=== PATIENT | female | born 1975 | race Caucasian/White ===

== ENCOUNTER 2022-12-26 20:57 | Emergency (ER) | payer MEDICAID ==
[~2022-12-26] VITALS: Ht 152.4 cm; Wt 65.9 kg
[2022-12-26 21:24] LABS: COVID AG,FIA SOURCE NASAL SWAB
[2022-12-26 21:43] LABS: INFLUENZA TYPE A NEGATIVE FOR TYPE A (NEGATIVE); INFLUENZA TYPE B POSITIVE FOR TYPE B (NEGATIVE)
[2022-12-26] MEDS ORDERED: OSEL75 PO (22:11)
[2022-12-26] MEDS ORDERED: IPRATROPIUM BROMIDE 0.5 MG/2.5 ML NEB SOLUTION NEB ONE (22:15)
[2022-12-26] MEDS ORDERED: ALBUTEROL SULFATE 2.5 MG/0.5 ML NEB SOLUTION NEB ONE (22:15)
[2022-12-26 23:16] VITALS: BP 136/81
== END 2022-12-26 23:34 | disposition home or self-care (01) ==
LOC: EMS 21:07
DX: J10.1 Influenza due to other identified influenza virus with other respiratory manifestations (principal); Z20.822 Contact with and (suspected) exposure to COVID-19
CPT/HCPCS: 87804; 94640; 99283